=== PATIENT | female | born 1950 | race Caucasian/White ===

== ENCOUNTER → 2017-11-29 | Outpatient (CLI) | payer OTHER ==
[~2017-11-29] MED LIST: FEXO60TA24 PO
== END | disposition home or self-care (01) ==
LOC: CFH 13:15
PROVIDERS: ATTEND Student in an Organized Health Care Education/Training Program
DX: J32.9 Chronic sinusitis, unspecified (principal)
CPT/HCPCS: 70486

== ENCOUNTER 2017-12-30 13:48 | Day surgery (SDC) | payer OTHER ==
[~2017-12-30] VITALS: Ht 157.5 cm; Wt 63.9 kg
[~2017-12-30 13:48] MED LIST changes: +ACETAMINOPHEN 500 MG TABLET PO ONE; +GABAPENTIN 300 MG CAPSULE PO ONE; +SCOPOLAMINE PATCH, 1.5MG PATCH.TD72 TD ONE
[2017-12-30] MEDS ORDERED: GABAPENTIN 300 MG CAPSULE PO ONE (14:30)
[2017-12-30] MEDS ORDERED: ACETAMINOPHEN 500 MG TABLET PO ONE (14:30)
[2017-12-30] MEDS ORDERED: PLEASE ENTER HEIGHT AND WEIGHT MC SCH (14:30)
[2017-12-30] MEDS ORDERED: SCOPOLAMINE PATCH, 1.5MG PATCH.TD72 TD ONE (14:30)
[2017-12-30 14:38] VITALS: BP 108/73
[2017-12-30] MEDS: LACTATED RINGERS 1,000 ML IV SCH ×2 (14:52→15:03)
[2017-12-30] MEDS ORDERED: MIDAZOLAM 1 MG/ML, 2ML ONE (15:15)
[2017-12-30] MEDS ORDERED: FENTANYL PF 250 MCG/5ML ONE (15:16)
[2017-12-30] MEDS ORDERED: OXYMETAZOLINE NASAL SPRAY 0.05%, 15ML ONE (15:29)
[2017-12-30] MEDS ORDERED: LIDOCAINE 1%, 20ML ONE (15:29)
[2017-12-30] MEDS ORDERED: PROPOFOL 50 ML ONE ×2 (15:33→16:51)
[2017-12-30] MEDS ORDERED: FLUORESCEIN OPHTHALMIC 1 MG STRIP ONE (15:37)
[2017-12-30] MEDS ORDERED: EPINEPHRINE TOPICAL SOLN 1 MG/ML, 30ML ONE (15:37)
[2017-12-30] MEDS ORDERED: CEFAZOLIN 1,000 MG ONE (15:52)
[2017-12-30] MEDS ORDERED: EPHEDRINE 50 MG/ML, 1ML ONE ×2 (15:52→16:07)
[2017-12-30] MEDS ORDERED: ONDANSETRON 2MG/ML, 2ML ONE (15:52)
[2017-12-30] MEDS ORDERED: METOCLOPRAMIDE 5 MG/ML, 2ML ONE (15:52)
[2017-12-30] MEDS ORDERED: KETOROLAC 30 MG/1 ML ONE (15:52)
[2017-12-30] MEDS ORDERED: HYDROmorphone 1 MG/ML, 1ML IV PRN (17:00)
[2017-12-30] MEDS ORDERED: LABETALOL 5MG/ML, 20ML IV PRN (17:00)
[2017-12-30] MEDS ORDERED: ALBUTEROL/IPRATROPIUM 2.5MG/0.5MG, 3 ML NPPB PRN (17:00)
[2017-12-30] MEDS ORDERED: PROMETHAZINE 25 MG/ML, 1ML IV PRN (17:00)
[2017-12-30] MEDS ORDERED: MIDAZOLAM 1 MG/ML, 2ML IV PRN (17:00)
[2017-12-30] MEDS ORDERED: MEPERIDINE/PF 25MG/0.5ML IVPush PRN (17:00)
[2017-12-30] MEDS ORDERED: PROMETHAZINE 12.5 MG SUPP PR PRN (17:00)
[2017-12-30] MEDS ORDERED: ONDANSETRON 2MG/ML, 2ML IVPush PRN (17:00)
[2017-12-30] MEDS ORDERED: hydrALAzine 20 MG/ML, 1ML IV PRN (17:00)
[2017-12-30] MEDS ORDERED: OXYcodone 5 MG/5 ML ORAL.SOL UDC PO PRN (17:00)
[2017-12-30] MEDS ORDERED: OXYcodone 5 MG/5 ML ORAL.SOL UDC ONE (18:18)
[2017-12-30] MEDS ORDERED: FENTANYL PF 100 MCG/2ML ONE (18:23)
[2017-12-30] MEDS: FENTANYL PF 100 MCG/2ML IV PRN ×2 (18:28→18:45)
== END 2017-12-30 22:30 | disposition home or self-care (01) ==
LOC: OR 13:48 → 4NOR 19:10 → OR 22:30
PROVIDERS: ATTEND Student in an Organized Health Care Education/Training Program
DX: J32.0 Chronic maxillary sinusitis (principal); J32.2 Chronic ethmoidal sinusitis; J32.1 Chronic frontal sinusitis; J34.3 Hypertrophy of nasal turbinates; Z88.5 Allergy status to narcotic agent; Z88.8 Allergy status to other drugs, medicaments and biological substances
CPT/HCPCS: 30140; 31253; 31267; 61782; 87070; 87075; 87205; 88304; 88311; 93005; J0690; J1885; J2250; J2405; J2704; J2765; J3010; J3490; J7120